=== PATIENT | female | born 1930 | race Caucasian/White ===

== ENCOUNTER → 2016-09-20 | Outpatient (CLI) | payer OTHER, BC ==
[~2016-09-20] MED LIST: ACYC-57 PO; ALEN70TA4 PO; ASPI325T39 PO; CHOL2000 PO; PRED1SUS3 OPR
--- NOTE | 2016-09-20 10:57 | DIAGNOSTIC IMAGING REPORT ---
CHEST CT WITHOUT CONTRAST CT DOSE: 171.85 mGycm HISTORY: Pulmonary nodularity PULMONARY NODULES TECHNIQUE: Multiaxial CT images of the chest were performed without contrast. COMPARISON: 03/26/2016 FINDINGS: Various pulmonary nodules as described are in general stable. There is no evidence for new interval or progressive process. Minimal atelectatic changes medial aspect right middle lobe unchanged from the prior study. Hilar and mediastinal regions are unremarkable. Mild ectasia of the thoracic aorta is unaltered and stable. IMPRESSION: 1. Several low suspicion parenchymal nodules bilaterally essentially unchanged from the prior study.. 2. No evidence for new interval or progressive process. Electronically signed by: Az Garcia M.D. 09/20/2016 10:56 AM
== END | disposition home or self-care (01) ==
LOC: C.CTS 10:23
PROVIDERS: ATTEND Family Medicine
DX: R91.8 Other nonspecific abnormal finding of lung field (principal)

== ENCOUNTER → 2016-10-08 | Outpatient (CLI) | payer OTHER, BC ==
[~2016-10-08] MED LIST changes: -ACYC-57 PO; +ACYC1CAP8 PO
--- NOTE | 2016-10-08 16:47 | MAMMOGRAPHY REPORT ---
BILATERAL DIGITAL SCREENING MAMMOGRAM WITH CAD: 10/08/2016 CLINICAL HISTORY: Routine screening. Patient has no complaints. TECHNIQUE: Bilateral CC and MLO views were obtained. Current study was also evaluated with a Comput er Aided Detection (CAD) system. COMPARISON: Comparison is made to exams dated: 10/06/2015 mammogram, 10/01/2013 mammogram, 10/05/2014 mammogram, 09/30/2012 mammogram, 09/25/2011 mammogram, and 09/22/2010 mammogram - [facility]. BREAST COMPOSITION: The tissue of both breasts is heterogeneously dense, which may obscure small ma sses. FINDINGS: There are scattered benign coarse calcifications and mild vascular calcifications in the b reasts. No new suspicious mass, architectural distortion or cluster of microcalcifications is seen. IMPRESSION: ACR BI-RADS CATEGORY 1: NEGATIVE There is no mammographic evidence of malignancy. A 1 year screening mammogram is recommended. The p atient will receive written notification of the results. Approximately 10% of breast cancers are not detected with mammography. A negative mammographic repor t should not delay biopsy if a clinically suggestive mass is present. Kath Benjamin M.D. ay/:10/08/2016 15:13:27 Scientific Director: Kelsie MIRELES(Ebony)(M), [facility] letter sent: Normal 1/2 BI-RADS Code: ACR BI-RADS Category 1: Negative
== END | disposition home or self-care (01) ==
LOC: EDBD → C.MAMM 10:08
PROVIDERS: ATTEND Family Medicine
DX: Z12.31 Encounter for screening mammogram for malignant neoplasm of breast (principal)

== ENCOUNTER 2018-01-18 10:24 | Emergency (ER) | payer OTHER, BC ==
[~2018-01-18] VITALS: Ht 160 cm; Wt 58.6 kg
[~2018-01-18 10:24] MED LIST changes: +ACYC-57 PO; -ACYC1CAP8 PO
[2018-01-18 10:29] VITALS: TEMP 36.7; Ht 160 cm; Wt 58.6 kg
[2018-01-18 10:56] VITALS: O2SAT 97
[2018-01-18] MEDS ORDERED: ZVR400 PO (11:25)
[2018-01-18] MEDS ORDERED: FSM10 PO (11:25)
[2018-01-18] MEDS ORDERED: PRED1SUS17 OPR (11:25)
[2018-01-18] MEDS ORDERED: AMLO2.5T PO (11:25)
[2018-01-18] MEDS ORDERED: ASPI81TA28 PO (11:25)
[2018-01-18 11:26] LABS: BASO % 0.4 %; BASO ABS # 0.02 K/uL (0-0.2); EOS % 5.8 %; EOS ABS # 0.29 K/uL (0-0.5); HEMATOCRIT 40.8 % (37-47); HEMOGLOBIN 13.4 g/dL (12.0-16.0); IG# 0.01 K/uL (0.00-0.02); LYMPH % 20.7 %; LYMPH ABS # 1.03 K/uL (1.2-3.4); MEAN CELL VOLUME 91.1 fL (80-100); MEAN CORPUSCULAR HEMOGLOBIN 29.9 pg (25-34); MEAN CORPUSCULAR HGB CONC 32.8 g/dl (32-36); MEAN PLATELET VOLUME 9.6 fL (7.4-10.4); MONO % 14.1 %; NEUT % 58.8 %; NEUT ABS # 2.92 K/uL (1.4-6.5); PLATELET COUNT 179 K/uL (130-400); RED CELL DISTRIBUTION WIDTH CV 13.5 % (11.5-14.5); WHITE BLOOD COUNT 4.97 K/uL (4.8-10.8)
--- NOTE | 2018-01-18 11:33 | DIAGNOSTIC IMAGING REPORT ---
CHEST 2 VIEWS ROUTINE CLINICAL HISTORY: 87 years-old Female presenting with cough eval for pna. TECHNIQUE: PA and lateral views of the chest were obtained. COMPARISON: 01/18/[address] from 09/20/2016. FINDINGS: Atherosclerosis of the aortic arch. Cardiac silhouette top normal in size. Lungs mildly hyperinflated with heterogeneous lung markings. Mildly displaced fractures of the lateral right fifth through ninth ribs. Osteopenia suspected. Focal compression deformity of a lower thoracic vertebral body, which was present on prior CT. Upper abdomen normal. IMPRESSION: 1. Mildly displaced acute fractures of the lateral right fifth through ninth ribs. 2. Mild hyperinflation and heterogeneity could suggest underlying emphysema though no emphysema was present on prior chest CT from September 2016. No focal infiltrate to suggest pneumonia. 3. Old compression fracture of a lower thoracic vertebral body. Electronically signed by: Jersey Avila M.D. 01/18/2018 11:32 AM Dictated Date/Time: 01/18/2018 11:28 AM
[2018-01-18 11:43] LABS: CREATININE 0.96 mg/dl (0.60-1.20); POTASSIUM 4.3 mmol/L (3.5-5.1)
[2018-01-18] MEDS ORDERED: BENZ100C84 PO (12:06)
[2018-01-18 12:17] VITALS: BP 114/75; PULSE 87; O2SAT 96
--- NOTE | 2018-01-18 16:33 | EMERGENCY ROOM VISIT NOTE ---
History Report prepared by Klaus: Fidelia Ford Under the Supervision of: Dr. Brent Nelson M.D. First contact with patient: 10:32 Chief Complaint: COUGH Stated Complaint: COUGHING,NO ENERGY Nursing Triage Summary: patient to ed via triage with family, states "I've been getting worse for four days or so, I have this cough and now I'm just so weak and tired, just lying around in bed." History of Present Illness The patient is a 87 year old female who presents to the Emergency Room with complaints of a persistent cough and weakness beginning 4 days ago. She reports she has been very "tired and weak," but she denies any chest discomfort, shortness of breath, leg swelling, urinary symptoms, abdominal pain, congestion , fevers, coughing anything up, or a sore throat. As per her family, the patient has been having a difficult time breathing but she denies this. The patient notes she has been lying in bed the past couple of days due to her lack of energy and fatigue. 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 Review of Systems See HPI for pertinent positives & negatives. A total of 10 systems reviewed and were otherwise negative. Past Medical & Surgical Medical Problems: (1) Bronchitis (2) C. difficile colitis (3) HTN (hypertension) (4) PNA (pneumonia) Surgical Problems: (1) S/P appendectomy Family History FH: cancer FH: heart disease Social History Smoking Status: Never Smoker Alcohol Use: none Drug Use: none Marital Status: Housing Status: lives alone Occupation Status: retired Current/Historical Medications Scheduled Acyclovir (Acyclovir), 400 MG PO DAILY Alendronate Sodium (Alendronate Sodium), 10 MG PO DAILY Amlodipine (Norvasc), 2.5 MG PO DAILY Aspirin (Aspirin Ec), 81 MG PO DAILY Cholecalciferol (Vitamin D3), 1 CAP PO DAILY Prednisolone Acetate (Ophth) (Prednisolone Acetate), 1 DROP OPR DAILY Scheduled PRN Benzonatate (Tessalon Perles), 100 MG PO Q8 PRN for Cough Allergies Coded Allergies: No Known Allergies (Verified , 01/18/18) Physical Exam Vital Signs Date Time Temp Pulse Resp B/P (MAP) Pulse Ox O2 Delivery O2 Flow Rate FiO2 01/18/18 12:17 87 20 114/75 96 Room Air 01/18/18 12:08 94 01/18/18 10:56 97 Room Air 01/18/18 10:29 36.7 105 20 149/93 97 Room Air Physical Exam Constitutional: Vital signs reviewed. Eyes: Pupils are equal round reactive to light. Conjunctiva are noninjected. ENT: Patient is coughing throughout exam. Pharynx is erythematous without exudate. Mucous membranes are moist. Neck supple without meningeal signs. Respiratory: Clear to auscultation bilaterally. Breath sounds are equal bilaterally. Cardiovascular: Regular rate and rhythm. No rubs or gallops. GI: Soft, nondistended and nontender. Bowel sounds are present. Musculoskeletal: No peripheral edema. No lower extremity tenderness. No chest wall tenderness. Integumentary: No cyanosis. Neurological: The patient is awake and alert. No focal deficits. Psychiatric: Normal affect. Medical Decision & Procedures ER Provider Diagnostic Interpretation: Radiology results as stated below per my review and the radiologist's interpretation: CHEST 2 VIEWS ROUTINE CLINICAL HISTORY: 87 years-old Female presenting with cough eval for pna. TECHNIQUE: PA and lateral views of the chest were obtained. COMPARISON: 01/18/[address] from 09/20/2016. FINDINGS: Atherosclerosis of the aortic arch. Cardiac silhouette top normal in size. Lungs mildly hyperinflated with heterogeneous lung markings. Mildly displaced fractures of the lateral right fifth through ninth ribs. Osteopenia suspected. Focal compression deformity of a lower thoracic vertebral body, which was present on prior CT. Upper abdomen normal. IMPRESSION: 1. Mildly displaced acute fractures of the lateral right fifth through ninth ribs. 2. Mild hyperinflation and heterogeneity could suggest underlying emphysema though no emphysema was present on prior chest CT from September 2016. No focal infiltrate to suggest pneumonia. 3. Old compression fracture of a lower thoracic vertebral body. Electronically signed by: Jersey Avila M.D. 01/18/2018 11:32 AM Laboratory Results 01/18/18 11:05 Red Blood Count 4.48, Mean Corpuscular Volume 91.1, Mean Corpuscular Hemoglobin 29.9, Mean Corpuscular Hemoglobin Concent 32.8, Mean Platelet Volume 9.6, Neutrophils (%) (Auto) 58.8, Lymphocytes (%) (Auto) 20.7, Monocytes (%) (Auto) 14.1, Eosinophils (%) (Auto) 5.8, Basophils (%) (Auto) 0.4, Neutrophils # (Auto ) 2.92, Lymphocytes # (Auto) 1.03, Monocytes # (Auto) 0.70, Eosinophils # (Auto ) 0.29, Basophils # (Auto) 0.02 01/18/18 11:05 Test 01/18/18 11:05 White Blood Count 4.97 K/uL (4.8-10.8) Red Blood Count 4.48 M/uL (4.2-5.4) Hemoglobin 13.4 g/dL (12.0-16.0) Hematocrit 40.8 % (37-47) Mean Corpuscular Volume 91.1 fL (80-100) Mean Corpuscular Hemoglobin 29.9 pg (25-34) Mean Corpuscular Hemoglobin Concent 32.8 g/dl (32-36) Platelet Count 179 K/uL (130-400) Mean Platelet Volume 9.6 fL (7.4-10.4) Neutrophils (%) (Auto) 58.8 % Lymphocytes (%) (Auto) 20.7 % Monocytes (%) (Auto) 14.1 % Eosinophils (%) (Auto) 5.8 % Basophils (%) (Auto) 0.4 % Neutrophils # (Auto) 2.92 K/uL (1.4-6.5) Lymphocytes # (Auto) 1.03 K/uL (1.2-3.4) Monocytes # (Auto) 0.70 K/uL (0.11-0.59) Eosinophils # (Auto) 0.29 K/uL (0-0.5) Basophils # (Auto) 0.02 K/uL (0-0.2) RDW Standard Deviation 45.0 fL (36.4-46.3) RDW Coefficient of Variation 13.5 % (11.5-14.5) Immature Granulocyte % (Auto) 0.2 % Immature Granulocyte # (Auto) 0.01 K/uL (0.00-0.02) Anion Gap 6.0 mmol/L (3-11) Est Creatinine Clear Calc Drug Dose 34.1 ml/min Estimated GFR () 61.6 Estimated GFR (Non- 53.2 BUN/Creatinine Ratio 16.2 (10-20) Calcium Level 9.0 mg/dl (8.5-10.1) Laboratory results as reviewed by me. ECG Per My Interpretation Indication: weakness Rate (beats per minute): 100 Rhythm: normal sinus Findings: other (no ST elevation, no PVCs ) ED Course 1033: The patient was evaluated in room C8. A complete history and physical exam was performed. 1203: She states she has previously broken her ribs and does not think this is new. She has no tenderness to palpation. I discussed her test results with her and she will follow up with her doctor for her low sodium levels. Upon reevaluation, the patient appeared to have improvement of her symptoms. I discussed tonight's findings with her. She verbalized agreement of the treatment plan. She was discharged home. Medical Decision This is an 87-year-old female who presents with cough and generalized weakness. Differential diagnosis includes URI, pneumonia, bronchitis, metabolic derangement, anemia. I did perform a limited focused review of portions of the patient's old chart on the electronic medical record. The patient has had no recent pertinent visits to this hospital. I did evaluate the patient as noted above. The patient is very well-appearing. She is sitting up in bed. She is coughing but her lungs are clear. IV access was established. 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 I did order and personally review the patient's 12-lead EKG and chest x-ray as described above. Twelve-lead EKG does not show any evidence of acute ischemia. Her chest x-ray does not show pneumonia. She does have multiple rib fractures which are described as acute but clinically this does not seem likely. She denies any trauma. She has no tenderness to her chest wall. She does state she has a prior history of rib fractures from a fall many years ago and stated that that was extremely painful and she currently has no chest pain. I did order and review the patient's blood work as noted in the electronic medical record. She does have mild hyponatremia. I did discuss the test results with her and her family in detail. I did recommend close follow-up with her family physician for further evaluation. I do not feel antibiotics are indicated at this time given the lack of any infiltrate. She was happy with this plan as she has a history of C. difficile from antibiotic use. The patient was discharged in good condition. I did discuss return instructions with her as described below. She will have her doctor recheck her sodium on follow-up. Medication Reconcilliation Current Medication List: was personally reviewed by me Blood Pressure Screening Patient's blood pressure: Elevated blood pressure Blood pressure disposition: Referred to PCP Impression Primary Impression: Acute bronchitis Additional Impression: Hyponatremia Scribe Attestation The scribe's documentation has been prepared under my direct and personally reviewed by me in its entirety. I confirm that the note above accurately reflects all work, treatment, procedures, and medical decision making performed by me. Departure Information Dispostion Home / Self-Care Prescriptions Benzonatate (Tessalon Perles) 100 Mg Cap 100 MG PO Q8 Y for Cough, #14 CAP Prov: Brent Nelson M.D. 01/18/18 Referrals No Doctor, Assigned (PCP) Forms HOME CARE DOCUMENTATION FORM, IMPORTANT VISIT INFORMATION Patient Instructions My [facility] Additional Instructions You have been examined and treated today on an emergency basis only. This is not a substitute for, or an effort to provide, complete comprehensive medical care. It is impossible to recognize and treat all injuries or illnesses in a single emergency department visit. It is therefore important that you follow up closely with your physician. Call as soon as possible for an appointment. Return immediately for worsening symptoms or if you develop fever, vomiting, chest pain, shortness of breath or any other concerning symptoms. Have your doctor recheck your sodium. Problem Qualifiers
== END 2018-01-18 12:19 | disposition home or self-care (01) ==
LOC: C.EDB 10:25 → C.EDC 12:19
DX: J20.9 Acute bronchitis, unspecified (principal); E87.1 Hypo-osmolality and hyponatremia; I10 Essential (primary) hypertension; Z79.82 Long term (current) use of aspirin; Z79.899 Other long term (current) drug therapy; Z87.81 Personal history of (healed) traumatic fracture